=== PATIENT | female | born 1995 | race Caucasian/White ===

== ENCOUNTER 2023-08-12 19:25 | Emergency (ER) | payer MEDICARE, OTHER, SELFPAY ==
[2023-08-12 19:29] VITALS: BP 92/73
--- NOTE | 2023-08-12 21:51 | ED.SKININJ ---
HPI-Injury
General
Chief Complaint: Skin Problem
Source: patient and family (Mother at bedside)
Exam Limitations: none
Time Seen by Provider: 08/12/23 20:18
Nursing documentation reviewed up to this point in time: agreed with
Travel History
Have you had any contact with someone who has COVID-19?: No
Do you have any symptoms of coronavirus? Fever > 100 degrees, chills, cough, shortness of breath, sore throat, loss of taste or smell, muscle aches, or headache?: No
History of Present Illness-Injury
Initial Injury comments:
27-year-old female paraplegic from a neck injury was at physical therapy in a quadruped position (on elbows and knees), and that position the toes of both feet hyperextended and the nail on the left great toe was avulsed. The nail on the left
second toe was also displaced but was able to be pushed back into its normal position.
Past History
Past History
ED Past Medical History: Other (Quadriplegia post spinal cord injury.)
ED Past Surgical History: Orthopedic (Neck fusion for spinal cord injury) and Urological (Bladder surgery)
Social History
Tobacco: Non-smoker
Alcohol: None
Personal: Single
Living: with family
Review of Systems
Review of Systems
Allergies reviewed?: Yes
All Other Systems: ROS reviewed and negative except as documented in HPI and ROS
: Reports other (Self catheterizes)
Musculoskeletal: Reports other (Pain left great and second toes)
Skin: Reports other (Avulsion left great toenail)
Neurological: Reports other (Quadriplegia)
Phy Exam
Physical Exam
Physical Exam:
PHYSICAL EXAMINATION:
General: no apparent distress, not acutely ill
Neuro: alert and oriented.
Psychiatric: well kept. interactive and cooperative
Musculoskeletal: Patient quadriplegic. Chronic edema both lower extremities. Feet warm with good capillary refill.
Skin: Warm, pink. The left great nail bed is completely avulsed save for one small corner. The left second nail is laying intact on the bed, root is intact. No active bleeding
Course
Orders/Labs/Results
Orders:
Orders
08/12/23 20:35
Foot, Left 3 View [CR Foot - Left Min 3 Views] Urgent
Comment: att great toe and 2nd toe
Reason For Exam: Great and 2nd toe injury
08/12/23 21:57
Cast Shoe Left-Treatment ONCE
Vital Signs
Initial and Last Documented VS:
Initial Vital Signs
Temp Pulse Resp BP Pulse Ox
97.6 F 91 18 92/73 94
08/12/23 19:29 08/12/23 19:29 08/12/23 19:29 08/12/23 19:29 08/12/23 19:29
Last Documented Vital Signs
Temp Pulse Resp BP Pulse Ox
97.6 F 91 18 92/73 94
08/12/23 19:29 08/12/23 19:29 08/12/23 19:29 08/12/23 19:29 08/12/23 19:29
Procedures
Digital Block
Location of injection for digital block: base of digit
Indiction for Digital Block: pain relief
Type of anesthesia: Marcaine
Complications: none- good anesthesia
Additional information:
Although patient is quadriplegic, she does have some pain sensation in her lower extremities. After adequate anesthesia, the left great toenail was removed, area cleansed with normal saline solution, antibiotic ointment, Vaseline gauze and sterile
gauze dressing applied. Cast shoe applied.
MDM/Problems Addressed
MDM/Problems Addressed:
27-year-old female paraplegic from a neck injury was at physical therapy in a quadruped position (on elbows and knees), and that position the toes of both feet hyperextended and the nail on the left great toe was avulsed. The nail on the left
second toe was also displaced but was able to be pushed back into its normal position.
X-ray of left foot reveals no fractures of the toes.
After adequate anesthesia from digital block, the left great toenail was removed. Area was irrigated with normal saline, antibiotic ointment, Vaseline gauze and regular gauze dressing applied. Fracture shoe applied.
Patient has a auto body repairer she will follow-up within 2 days
*Critical Care Note
Total Time (30-74mins, 75-104mins- exclusive of procedures): Not Applicable
ED Attending Note
-
Portions of this chart may have been created with voice recognition software.� Occasional wrong word or��sound alike� substitutions may have occurred due to the inherent limitations of voice recognition software.
Discharge Plan
Departure
Patient Disposition: Home (Routine Discharge)
Date of Disposition: 08/12/23
Time of Disposition: 21:57
Patient with high blood pressure during this ER visit?: No
Condition: Good
Discharge Problem:
Avulsion of toenail, Sprain of great toe, Sprain of second toe
Instructions: Toe Injury, Nail Avulsion
Referrals:
Your, auto body repairer [Other] - Follow up in 2-3 days
Yani Leyva MD [Family Provider] -
Activity Restrictions/Additional Instructions:
As we discussed, leave the dressing on until you see your auto body repairer for dressing change in 2 days.
Wear the cast shoe for protection.
Ibuprofen 600 mg, with food, every 6 hours as needed for pain.
Interventions
Interventions:
*Risk Screen - Suicide Last Done: 08/12/23 19:29
*General Assessment Last Done: 08/12/23 19:29
*Neglect/Abuse Screening Last Done: 08/12/23 19:29
ED- Fall Risk Assessment Last Done: 08/12/23 22:19
*Nursing Disposition Last Done: 08/12/23 22:20
ED-Skin Assessment Last Done: 08/12/23 22:19
Discharge Date and Time
Discharge Date/Time: 08/12/23 22:21
== END 2023-08-12 22:21 | disposition home or self-care (01) ==
LOC: EMR 19:25
PROVIDERS: EMERGENCY PHYSICIAN Emergency Medicine; FAMILY PHYSICIAN Family Medicine
DX: S93.502A Unspecified sprain of left great toe, initial encounter (principal); S93.506A Unspecified sprain of unspecified lesser toe(s), initial encounter; S91.202A Unspecified open wound of left great toe with damage to nail, initial encounter; X50.1XXA Overexertion from prolonged static or awkward postures, initial encounter; G82.50 Quadriplegia, unspecified
CPT/HCPCS: 99284; 64450; 73630